=== PATIENT | female | born 1930 | race Caucasian/White ===

== ENCOUNTER 2016-08-29 09:02 | Day surgery (SDC) | payer MEDICARE, BC ==
[2016-08-29] VITALS (10 sets, daily range): BP systolic 102–145; BP diastolic 40–80; PULSE 68–92; TEMP 97.3–98.3
[~2016-08-29] VITALS: Ht 170.2 cm; Wt 59.1 kg
[2016-08-29] MEDS ORDERED: PROTONIX 40MG T40 MG PO (11:21)
[2016-08-29] MEDS ORDERED: CANA300T PO (11:22)
[2016-08-29] MEDS ORDERED: JANUMXR100-1000 PO (11:22)
[2016-08-29] MEDS ORDERED: LIPITOR 40MG TA40 MG PO (11:23)
[2016-08-29] MEDS ORDERED: PLAVIX 75MG TAB75 MG PO (11:24)
[2016-08-29] MEDS ORDERED: LASIX 20MG TABL20 MG PO (11:24)
[2016-08-29] MEDS ORDERED: ZIAC 10/6.25M1 UDTAB PO (11:25)
[2016-08-29] MEDS ORDERED: COZAAR100 MG PO (11:27)
[2016-08-29] MEDS ORDERED: VITAMIN D31000 IU PO (11:28)
[2016-08-29] MEDS ORDERED: ASPIRIN 81M81 MG/TA2 PO (11:29)
[2016-08-30 02:15] VITALS: BP 121/56; PULSE 80; TEMP 98.4
[2016-08-30 06:23] VITALS: BP 134/61; PULSE 74; TEMP 98.1
[2016-08-30 09:40] VITALS: BP 155/79; PULSE 93; TEMP 98.2
[2016-08-30 13:09] VITALS: BP 132/94; PULSE 83
== END 2016-08-30 17:14 | disposition home or self-care (01) ==
LOC: SDCO 09:02 → SURG 14:59 → SDCO 08-30 17:14
DX: K81.0 Acute cholecystitis (principal); K81.1 Chronic cholecystitis; R79.89 Other specified abnormal findings of blood chemistry
CPT/HCPCS: OP; A9284; J0330; J0690; J2370; J2405; J2704; J3010; J7030; Q9967